=== PATIENT | male | born 1970 | race Caucasian/White ===

== ENCOUNTER 2017-12-14 12:33 | Outpatient (CLI) | payer OTHER | END 2017-12-14 12:34 | disposition home or self-care (01) | LOC: DTY/OP 12:33 | PROVIDERS: ATTEND Surgery | DX: E66.01 Morbid (severe) obesity due to excess calories (principal) | CPT/HCPCS: 97802 ==

== ENCOUNTER 2018-04-27 12:51 | Outpatient (CLI) | payer OTHER ==
--- NOTE | 2018-04-27 13:54 | RAD ---
TWO VIEWS CHEST: Comparison: None. History: Dyspnea. FINDINGS: Two views of the chest show normal sized cardiomediastinal silhouette. There is no evidence of consol idation, mass, or pleural effusion. Mild degenerative changes are seen in the spine. IMPRESSION: No evidence of acute cardiopulmonary disease. POS: [facility]
== END 2018-04-27 12:52 | disposition home or self-care (01) ==
LOC: RAD 12:51
PROVIDERS: ATTEND Internal Medicine Pulmonary Disease
DX: R06.00 Dyspnea, unspecified (principal)
CPT/HCPCS: 71046

== ENCOUNTER 2018-11-29 16:25 | Inpatient (IN) | payer OTHER ==
[2018-12-24 14:26] VITALS: BMI 55.2
[2018-12-27] MEDS ORDERED: Heparin 5,000 UNITS/ML VIAL ONE (06:41)
[2018-12-27] MEDS ORDERED: Midazolam HCl 2 mg/2 ml Vial ONE (06:42)
[2018-12-27] MEDS ORDERED: ceFAZolin Sodium (SDC) 2 GM/100 ML BAG ONE (06:42)
[2018-12-27] MEDS ORDERED: Sodium Chloride 0.9% 0 ML ONE (06:42)
[2018-12-27] MEDS ORDERED: Bupivacaine 0.25% HCL 30 ML VIAL ONE (06:48)
[2018-12-27] MEDS ORDERED: Bupivacaine/Epinephrine 0.25% 30 ML VIAL ONE (06:49)
[2018-12-27] MEDS ORDERED: Fentanyl 100 MCG/2 ML VIAL ONE ×3 (06:53→09:43)
[2018-12-27] MEDS ORDERED: Ondansetron PF 4 MG/2 ML Vial IVP PRN ×2 (09:14→09:28)
[2018-12-27] MEDS ORDERED: diphenhydrAMINE 50 MG/ML VIAL IVP PRN ×2 (09:14→09:28)
[2018-12-27] MEDS ORDERED: diphenhydrAMINE 25 MG CAP PO PRN (09:14)
[2018-12-27] MEDS ORDERED: Naloxone HCl 0.4 mg/ml Vial IV PRN (09:14)
[2018-12-27] MEDS ORDERED: Promethazine HCl 25 MG/ML VIAL IM PRN ×2 (09:14→09:28)
[2018-12-27] MEDS ORDERED: diphenhydrAMINE 50 MG/ML VIAL IM PRN (09:14)
[2018-12-27] MEDS ORDERED: Zolpidem Tartrate 5 MG TAB PO PRN (09:14)
[2018-12-27] MEDS ORDERED: fentaNYL Citrate/PF 2,000 MCG in Sodium Chloride 0.9% 60 ML IV PRN (09:14)
[2018-12-27] MEDS ORDERED: Communication Order-Pharmacy FS SCH (09:15)
[2018-12-27] MEDS ORDERED: Dextrose 5% in Water 1,000 ML IV PRN (09:28)
[2018-12-27] MEDS ORDERED: Hydrocodone-Acetamin 15 ML UDCUP PO PRN (09:28)
[2018-12-27] MEDS ORDERED: Insulin Regular 300 UNITS/3 ML VIAL SC PRN (09:28)
[2018-12-27] MEDS ORDERED: Dextrose 50% Abboject 50 ML SYRINGE SLOW IVP PRN (09:28)
[2018-12-27] MEDS ORDERED: hydrALAZINE 20 MG/ML VIAL SLOW IVP PRN (09:28)
[2018-12-27] MEDS ORDERED: Meperidine HCl/PF 25 MG/ML VIAL SLOW IVP PRN (09:32)
[2018-12-27] MEDS ORDERED: Ondansetron HCl/PF 4 MG/2 ML Vial IVP PRN (09:32)
[2018-12-27] MEDS ORDERED: hydrALAZINE 20 MG/ML VIAL ONE (10:07)
[2018-12-27] MEDS ORDERED: hydrALAZINE 20 MG/ML VIAL SLOW IVP SCH (10:15)
[2018-12-27] MEDS: 1/2 NS w/KCL 20 mEq 1,000 ML IV SCH ×2 (11:30→17:58)
--- NOTE | 2018-12-27 11:58 | HP ---
CHIEF COMPLAINT: Morbid obesity. HISTORY OF PRESENT ILLNESS: The patient is a 48-year-old male, who has been overweight for many years, attempted multiple weight loss programs without success. He is here for sleeve gastrectomy. PAST MEDICAL HISTORY: Significant for diabetes, glaucoma, seasonal allergies. PAST SURGERIES: None. MEDICATIONS: Lisinopril, metformin. FAMILY HISTORY: Unknown. SOCIAL HISTORY: He denies any alcohol or tobacco. ALLERGIES: NO KNOWN DRUG ALLERGIES. PHYSICAL EXAMINATION: VITAL SIGNS: Height 74, weight 449, body mass index 57.7. GENERAL: He is a well-developed, well-nourished male, in no apparent distress. HEENT: He has some male pattern balding. Pupils are equal, round, and reactive. Extraocular motor intact. Pharynx, clear. Good dentition. NECK: Supple. No thyroid masses. No carotid bruits. LUNGS: Clear. HEART: Regular rate and rhythm. ABDOMEN: Obese, soft. No palpable masses or hernias. EXTREMITIES: Good pulses. No pedal edema. BACK: Nontender. No spinal deformity. ASSESSMENT: Morbid obesity with comorbidities. PLAN: Laparoscopic sleeve gastrectomy. CONSENT: I have discussed the planned procedure as well as risk of bleeding; infection; injury to esophagus, spleen, loops of bowel; need to open. He understands and gives informed consent. Job ID: [id number]
[2018-12-27] MEDS ORDERED: Ketorolac Tromethamine 30 MG/ML VIAL IVP SCH (12:00)
--- NOTE | 2018-12-27 15:24 | OP ---
DATE OF PROCEDURE: 12/27/2018 PREOPERATIVE DIAGNOSIS: Morbid obesity. PROCEDURES PERFORMED: Laparoscopic sleeve gastrectomy and esophagogastroscopy. INDICATIONS: A 48-year-old male, morbidly obese, who has attempted multiple weight loss programs without success. FINDINGS: A 38-Malaysian bougie used. DESCRIPTION OF PROCEDURE: After informed consent was obtained, the patient was taken to the operating room, given general endotracheal anesthesia, placed in the supine position. Abdomen was prepped and draped in usual fashion. Local anesthesia infiltrated subcutaneously and deep and a 12 mm incision was performed approximately 8 inches above the xiphoid slightly to the left. Veress needle inserted. Drop test performed. Pneumoperitoneum was created to a pressure of 15 mmHg. The patient placed in a steep reverse Trendelenburg position. Ervin liver retractor inserted. Left lobe of liver retracted superiorly. The pylorus was identified. A 12 mm port placed on the right beneath it and two 12s placed left subcostal. The omentum was taken off the greater curvature 5 cm from the pylorus utilizing the LigaSure. His omentum was hypervascular and we ran into some bleeding despite using the LigaSure, so this was finally controlled and the short gastrics divided with LigaSure. Left crura defined with LigaSure. A 38-Malaysian bougie inserted, directed into the antrum. The linear 60 mm green load stapler used to divide the antrum to the bougie, gold load along the bougie, and a series of blues through the angle of His. Intraoperative endoscopy was performed. The videoendoscope inserted under direct vision. The staple line inspected. There was no bleeding. Staple line then tested by inflating the new stomach with pressurized air and water. There was no air leak. Stomach decompressed. Scope removed. The remnant stomach removed from the abdomen through the left lateral port site. The fascia closed with 0 Vicryl suture and the GraNee needle. He also had some bleeding from the right trocar site, which was controlled with the GraNee needle as well and a 0 Vicryl suture. The skin closed with interrupted 4-0 Rapide. Dermabond applied. The patient tolerated the procedure well, transferred to Recovery in good condition. Sponge and needle count verified correct x2. Job ID: [id number]
[2018-12-27] MEDS: Ketorolac Tromethamine 30 MG/ML VIAL IVP SCH ×2 (15:31→19:58)
[2018-12-27] MEDS: CEFAZOLIN 2 GM, Admixture Fee 1 EACH in Sodium Chloride 0.9% 100 ML IVPB SCH ×2 (15:32→22:33)
[2018-12-28] MEDS: 1/2 NS w/KCL 20 mEq 1,000 ML IV SCH ×2 (02:38→08:35)
[2018-12-28] MEDS: Ketorolac Tromethamine 30 MG/ML VIAL IVP SCH ×2 (02:38→08:17)
[2018-12-28 07:22] LABS: #Lymphocytes 1.1 thou/uL (1.20-3.40); #Monocytes 0.6 thou/uL (0.11-0.59); #Neutrophils 5.7 thou/uL (1.40-6.50); %Basophils 0.1 % (0.0-1.0); %Eosinophils 0.2 % (0.0-10.0); %Lymphocytes 15.1 % (21.0-51.0); %Monocytes 8.4 % (0.0-10.0); %Neutrophils 76.1 % (42.0-75.0); Hemoglobin 12.9 g/dL (14.0-18.0); Mean Corpuscular HGB CONC 32.3 g/dL (32.0-36.0); Mean Corpuscular Hemoglobin 28.5 pg (27.0-31.0); Mean Corpuscular Volume 88.3 fL (78.0-98.0); Mean Platelet Volume 6.8 fL (7.4-10.4); Platelet Count 272 thou/uL (130-400); RBC Distribution Width 14.2 % (11.5-14.5); Red Blood Cell (RBC) Count 4.53 mill/uL (4.70-6.10); White Blood Cell (WBC) Count 7.5 thou/uL (4.8-10.8)
[2018-12-28 07:25] VITALS: TEMP 98.1
[2018-12-28 07:36] LABS: Anion Gap 12 mmol/L (10-20); BUN (Urea Nitrogen) 11 mg/dL (8.9-20.6); Calc. Creatinine Clearance 300 mL/min (70-130); Calcium 9.6 mg/dL (7.8-10.44); Carbon Dioxide 27 mmol/L (22-29); Chloride 102 mmol/L (98-107); Estimated GFR-MDRD Greater than 90; Glucose 98 mg/dL (70-105); Potassium 4.7 mmol/L (3.5-5.1); Sodium 136 mmol/L (136-145)
--- NOTE | 2018-12-28 08:04 | PDOC.GSPN ---
Surgery Progress Note: Subj - Subjective Narrative: Mr. Luis is a 48 y/o morbidly obese male post operative day #1 s/ p sleeve gastrectomy. He has some appropriate incision site pain and diffuse abdominal tenderness, but is recovering well. He has had some mild nausea, but no episodes of vomiting and has not yet had a bowel movement. He no longer has a Duong catheter and is voiding normally. He has been eating ice chips and is ready to try clear liquid diet. He has been ambulating frequently and is on enoxaparin for DVT prophylaxis. Surgery Progress Note: Obj - Vital signs Vital signs: Vital Signs - Most Recent Temp Pulse Resp BP Pulse Ox 98.1 F 51 L 20 124/70 99 12/28/18 07:18 12/28/18 07:18 12/28/18 07:18 12/28/18 07:18 12/28/18 07:18 - Physical Exam General: no distress, other ENT: other (Moist mucous membranes. Oral and pharyngeal mucosa without exudate or erythema.) Respiratory: clear to auscultation Abdomen: soft, decreased bowel sounds, appropriately tender Wound: healing well (No drainage.) Surgery Progress Note: Results - Labs Result Diagrams: 12/28/18 07:00 12/28/18 07:00 Lab results: Laboratory Results - last 24 hr 12/28/18 12/28/18 07:00 07:00 WBC 7.5 RBC 4.53 L Hgb 12.9 L Hct 40.0 L MCV 88.3 MCH 28.5 MCHC 32.3 RDW 14.2 Plt Count 272 MPV 6.8 L Neutrophils % 76.1 H Lymphocytes % 15.1 L Monocytes % 8.4 Eosinophils % 0.2 Basophils % 0.1 Neutrophils # 5.7 Lymphocytes # 1.1 L Monocytes # 0.6 H Eosinophils # 0.0 Basophils # 0.0 Sodium 136 Potassium 4.7 Chloride 102 Carbon Dioxide 27 Anion Gap 12 BUN 11 Creatinine 0.83 Estimated GFR (MDRD) Greater than 90 Glucose 98 Calcium 9.6 Surgery Progress Note: A/P - Plan Plan: Mr. Luis is a 48 y/o morbidly obese male post operative day #1 s/p sleeve gastrectomy and is recovering well. He has appropriate post operative pain. He has been ambulating, sleeping and voiding well and we will continue to monitor for progression of bowel movements. His pulse is slightly low at 51 bpm this morning, but he usually runs low. His hemoglobin is slightly low at 12.9 and we will continue to monitor for return to normal levels. Plan is to continue encouraging ambulation and advance patient to clear liquid diet as tolerated.
--- NOTE | 2018-12-28 08:20 | RAD ---
XR UGI Single Contrast No Air HISTORY: Vertical sleeve gastrectomy Post bariatric surgery evaluation Procedure: Single sip swallow study was performed with administration of 15 mL contrast under fluoros copy. FINDINGS: Contrast traverses the gastroesophageal junction. No leak or evidence of obstruction. IMPRESSION: Normal study.
[2018-12-28] MEDS ORDERED: Pantoprazole 40 MG VIAL IVP SCH (09:00)
[2018-12-28] MEDS ORDERED: Enoxaparin Sodium 40 MG/0.4 ML SYRINGE SC SCH (09:00)
[2018-12-28 10:55] VITALS: BP 127/73
--- NOTE | 2018-12-29 03:38 | DIS ---
DATE OF ADMISSION: 12/27/2018 DATE OF DISCHARGE: 12/28/2018 DISCHARGE DIAGNOSIS: Morbid obesity. PROCEDURES DURING ADMISSION: Laparoscopic gastric sleeve, intraoperative esophagogastroscopy, postoperative Gastrografin swallow. HOSPITAL COURSE: The patient was admitted, taken to the operating room, where he underwent sleeve gastrectomy. Postoperatively, he has done well. His x-ray was fine. He was started on liquids. He is tolerating them well. His pain is controlled on p.o. medications. He is discharged home on hydrocodone and Zofran. He will follow up with me in 2 weeks. Job ID: [id number]
== END 2018-12-28 12:55 | disposition home or self-care (01) | DRG 621 ==
LOC: SURG A 12-27 05:54
PROVIDERS: ADMIT Surgery; ATTEND Surgery
PROC: 0DB64Z3 Excision of Stomach, Percutaneous Endoscopic Approach, Vertical (ICD-10-PCS; principal; 2018-12-27)
DX: E66.01 Morbid (severe) obesity due to excess calories (principal); E11.9 Type 2 diabetes mellitus without complications; I10 Essential (primary) hypertension; G47.30 Sleep apnea, unspecified; H40.9 Unspecified glaucoma; J30.2 Other seasonal allergic rhinitis; Z79.899 Other long term (current) drug therapy; Z79.84 Long term (current) use of oral hypoglycemic drugs; Z68.43 Body mass index [BMI] 50.0-59.9, adult; Z87.891 Personal history of nicotine dependence; Z99.89 Dependence on other enabling machines and devices; Z87.440 Personal history of urinary (tract) infections
CPT/HCPCS: 36415; 74241; 80048; 85025; 88307; 88312; 90471; 90732; 94760; C9113; G0009; J0131; J0360; J0690; J1644; J1650; J1885; J2250; J3010; J3480; J3490; S0020

== ENCOUNTER 2019-03-21 11:43 | Emergency (ER) | payer OTHER ==
[2019-03-21] MEDS ORDERED: Iopamidol 370 76% 50 ML VIAL FS ONE (12:00)
[2019-03-21] MEDS ORDERED: Iopamidol 370 76% 100 ML VIAL ONE (12:00)
[2019-03-21 12:23] LABS: #Basophils 0.1 thou/uL (0.0-0.2); #Eosinphils 0.2 thou/uL (0.0-0.7); #Lymphocytes 1.6 thou/uL (1.20-3.40); #Monocytes 0.8 thou/uL (0.11-0.59); #Neutrophils 5.5 thou/uL (1.40-6.50); %Basophils 0.7 % (0.0-1.0); %Eosinophils 2.9 % (0.0-10.0); %Lymphocytes 19.1 % (21.0-51.0); %Monocytes 9.5 % (0.0-10.0); %Neutrophils 67.8 % (42.0-75.0); Hemoglobin 15.4 g/dL (14.0-18.0); Mean Corpuscular HGB CONC 33.1 g/dL (32.0-36.0); Mean Corpuscular Hemoglobin 28.6 pg (27.0-31.0); Mean Corpuscular Volume 86.4 fL (78.0-98.0); Mean Platelet Volume 7.3 fL (7.4-10.4); Platelet Count 231 thou/uL (130-400); RBC Distribution Width 13.3 % (11.5-14.5); Red Blood Cell (RBC) Count 5.39 mill/uL (4.70-6.10); White Blood Cell (WBC) Count 8.2 thou/uL (4.8-10.8)
[2019-03-21 12:42] LABS: ALT (SGPT) 31 U/L (8-55); AST (SGOT) 38 U/L (5-34); Albumin 3.8 g/dL (3.5-5.0); Alkaline Phosphatase 64 U/L (40-110); Anion Gap 13 mmol/L (10-20); BUN (Urea Nitrogen) 10 mg/dL (8.9-20.6); Bilirubin, Total 0.8 mg/dL (0.2-1.2); Calc. Creatinine Clearance 0 mL/min (70-130); Calcium 9.3 mg/dL (7.8-10.44); Carbon Dioxide 27 mmol/L (22-29); Chloride 103 mmol/L (98-107); Estimated GFR-MDRD Greater than 90; Globulin 3.3 g/dL (2.4-3.5); Glucose 99 mg/dL (70-105); Potassium 3.7 mmol/L (3.5-5.1); Protein, Total 7.1 g/dL (6.0-8.3); Sodium 139 mmol/L (136-145)
[2019-03-21 13:42] LABS: Bilirubin Small (Negative); Blood, Urine Negative (Negative); Glucose, Urine (Dipstick) Negative (Negative); Leukocyte Negative (Negative); Nitrite Negative (Negative); Protein, Urine (Dipstick) Trace mg/dL (Neg-Trace)
[2019-03-21 13:44] LABS: Clarity Clear (Clear)
--- NOTE | 2019-03-21 14:39 | RAD ---
PORTABLE CHEST: Date: 03/21/19 PROVIDED CLINICAL HISTORY: Abdominal pain. FINDINGS: Comparison with 04/27/18. Evaluation is limited by patient body habitus. Cardiac and mediastinal silhouette is within normal li mits. No focal consolidation, pleural fluid, or pneumothorax apparent. IMPRESSION: No evidence for an acute cardiopulmonary process. POS: [facility]
--- NOTE | 2019-03-21 15:36 | CT ---
CT ABDOMEN AND PELVIS WITH IV CONTRAST 03/21/2019 CLINICAL INFORMATION: Abdominal pain for 10 days. Post gastric sleeve procedure 10 weeks ago. Bloating. COMPARISON: None. Technique: Multiple contiguous axial CT images are obtained through the abdomen and pelvis with IV contrast. Cor onal reformatted images are provided. FINDINGS: Lower Chest: Lung bases are clear. Vessels: Abdominal aorta is normal in caliber. Abdomen: Portal vein:Patent Gallbladder: Within normal limits for CT imaging. Liver: A subcentimeter too small to characterize hypodense lesion is seen in the left hepatic lobe ad jacent to the IVC. Subtle additional subcentimeter hypodense lesions are identified in the right hepatic lobe which are also too small to characterize. Spleen: within normal limits. Pancreas: within normal limits. Adrenals: within normal limits. Kidneys: within normal limits. Bowel: Postsurgical changes of the stomach are noted likely related to patient's reported history of gastric sleeve procedure. No adjacent fluid collection or free intraperitoneal gas is identified. No adjacent inflammatory changes are seen. The stomach is mildly distended with oral contrast, and th ere is no extravasation of contrast to suggest a leak. Loops of small bowel are normal in caliber. Appendix: The appendix is visualized and normal in caliber. Peritoneum: No ascites or free air; no fluid collection. Mesentery and Retroperitoneum: No enlarged mesenteric or retroperitoneal lymph nodes. Abdominal Wall: Fat-containing bilateral inguinal canals are present larger in size on the left. Pelvis: Reproductive Organs: No pelvic masses. Pelvis within normal limits. Bladder: Decompressed but otherwise grossly within normal limits. Bones: Degenerative changes are seen in the spine. IMPRESSION: 1. No acute findings are seen in the abdomen or pelvis. 2. Postsurgical changes of the stomach related to patient's history of gastric sleeve procedure. Ther e are no findings to suggest a leak, and no fluid collection is seen to suggest an abscess. 3. Subcentimeter too small to characterize left hepatic lobe hypodense lesion with question of a few additional too small to characterize hypodense lesions in the right hepatic lobe. 4. Fat-containing bilateral inguinal canals. 5. No CT evidence of appendicitis.
--- NOTE | 2019-03-21 19:57 | CON ---
DATE OF CONSULTATION: 03/21/2019 REQUESTING PHYSICIAN: Dr. Terrence Aponte. REASON FOR CONSULTATION: Abdominal pain. HISTORY OF PRESENT ILLNESS: Beau Luis is a 48-year-old man with a history of morbid obesity. He underwent gastric sleeve surgery about 10 weeks ago on 12/27/[address] Aponte. This was uncomplicated. He had an upper GI series the following day, which was normal showing no leak and he was discharged that following day. He says he has lost about 50 pounds since that time. He has some chronic back pain, seasonal allergies, but has been taking no medications, particularly since the surgery. He denies any NSAID use. For just about the past 10 days, he has been having new abdominal pain. He says that this started in the epigastrium and associated with reduction in appetite and oral intake, though no nausea or vomiting. This is a bloating and cramping type discomfort, which occasionally gets severe. Over the past week, this has migrated down from the epigastrium to just below the umbilicus. He thought that he might be constipated, but after taking magnesium citrate and having good bowel movements, his cramping discomfort has persisted. It is started to radiate to the flanks bilaterally. Just over the past couple of days, he had a good bowel movement earlier today with no effect on the pain. He has been to the ER a couple of times up in [place], but this time drove down from his home in [place] to our emergency department for evaluation. Laboratory studies are essentially unrevealing with basically normal LFTs, CMP, CBC, normal lipase, negative urinalysis and a CT of the abdomen and pelvis shows no acute processes, just normal postoperative anatomy of gastric sleeve. Dr. Aponte had planned to admit the patient for further evaluation, but the patient is now desiring to leave the hospital and go back to [place]. REVIEW OF SYSTEMS: Full review of systems including constitutional, head, eyes, ears, nose, throat, GI, , cardiovascular, respiratory, musculoskeletal, and neurologic systems is negative except as noted in the HPI. PAST MEDICAL HISTORY: Morbid obesity, gastric sleeve on 12/27/2018, diabetes, chronic back pain, glaucoma, and seasonal allergies. ALLERGIES: NO KNOWN DRUG ALLERGIES. OUTPATIENT MEDICATIONS: None. FAMILY HISTORY: Unknown. SOCIAL HISTORY: The patient does smoke marijuana. He denies tobacco or alcohol abuse. PHYSICAL EXAMINATION: GENERAL: Obese 48-year-old man, sitting up on the stool comfortably, in no distress. SKIN: No jaundice. No rashes were palpable. HEENT: Eyes; no scleral icterus. Extraocular movements intact. ENT; mucous membranes moist. No oral lesions. LYMPH: No submandibular or supraclavicular lymphadenopathy. THYROID: Nontender to palpation. HEART: Regular rate and rhythm. LUNGS: Clear to auscultation bilaterally. ABDOMEN: Obese. Bowel sounds are present. Soft. Some tenderness to palpation in the epigastrium and lower abdomen, but no guarding or rebound tenderness. Surgical incisions healing well. No hernia appreciated. EXTREMITIES: No peripheral edema. VESSELS: Radial pulses 2+ bilaterally. NEUROLOGIC: Cranial nerves 2 through 12 intact bilaterally. No focal deficits. LABORATORY STUDIES: WBC 8.2, hemoglobin 15.4, platelets 231, BUN 10, creatinine 0.81, sodium 139, potassium 3.7, lipase 35. Urinalysis negative. Total bilirubin 0.8, alkaline phosphatase 64, AST 38, ALT 31, and albumin 3.8. IMAGING STUDIES: Chest x-ray shows no acute processes. CT of the abdomen and pelvis shows no acute processes. There is normal post gastric sleeve anatomy. Some tiny liver lesions, which are too small to characterize. ASSESSMENT AND PLAN: 1. Upper abdominal pain. 2. Lower abdominal pain. 3. Recent gastric sleeve operation on 12/27/2018. I had a long discussion with the patient. His laboratory and CT evaluation have been unremarkable and unrevealing. I do not find it very likely that this is directly related to his recent surgery, as it has been so far out from the time of the procedure, and as the pain is primarily involving the lower abdomen at this point. We discussed that the next step in evaluation would be diagnostic esophagogastroduodenoscopy and colonoscopy, and if the patient was willing to be admitted to the hospital, we could get that done tomorrow. However, the patient is wanting to go back home to [place] this evening, and either return for endoscopic workup on an outpatient basis later, or just have it done up in [place] somewhere. I advised him that he could try to arrange this through his primary care provider. Otherwise, I will try to have my office staff contact him within the next week or so, to set up a time for esophagogastroduodenoscopy and colonoscopy here at his convenience, though logistically that might be difficult for him. We remain available to assist in any way we can. If he is going back to [place], consideration could be given for a trial of dicyclomine 10 mg t.i.d. p.r.n. in the meantime. Thank you for the consultation. Please call anytime with questions or concerns. Job ID: [id number]
--- NOTE | 2019-03-21 22:09 | PRG ---
DATE OF SERVICE: 03/21/2019 CHIEF COMPLAINT: Lower abdominal pain. HISTORY OF PRESENT ILLNESS: This 48-year-old male who underwent sleeve gastrectomy on December 27, who has been having these episodes of lower abdominal pain and bilateral back pain, which he describes as kidney pain. He has been under three emergency rooms with workups that were all negative. I had him come down here with plan on admitting him, so we could do a GI evaluation, but he says he needs to get back to dialysis and he feels fine now. He is afebrile. Vital signs are fine. His white count is 8.2, H and H 15 and 46, platelet count 231. Electrolytes are all normal. His AST is a little elevated at 38. Urinalysis clear. He had a CT of the abdomen and pelvis with contrast that pretty was normal. No appendicitis, no inflammation, no free fluid, no free air, no evidence of a leak. fluid collections. Chest x-ray unremarkable. ASSESSMENT: Lower abdominal pain, probably not related to the sleeve. PLAN: Recommend GI evaluation. He may do it here or he may do it in [place], but he says he is going to go back to [place] now. Job ID: [id number]
== END 2019-03-21 16:57 | disposition left against medical advice (07) ==
LOC: ERS 11:43
DX: R00.1 Bradycardia, unspecified (principal); R10.31 Right lower quadrant pain; E11.9 Type 2 diabetes mellitus without complications; I10 Essential (primary) hypertension; F17.290 Nicotine dependence, other tobacco product, uncomplicated
CPT/HCPCS: 36415; 71045; 74177; 80053; 81003; 83690; 83735; 84484; 85025; 93005; 96360; 96361; Q9967